=== PATIENT | female | born 1990 | race Caucasian/White ===

== ENCOUNTER 2017-11-03 13:03 | Inpatient (IN) | payer MEDICAID, OTHER ==
--- NOTE | 2017-11-03 14:23 | ED ---
Psych HPI - General Chief Complaint: Psychiatric Symptoms Stated Complaint: female , weakness Time Seen by Provider: 11/03/17 13:47 Source: patient, RN notes reviewed Mode of arrival: wheelchair Limitations: no limitations - History of Present Illness Initial Comments: 27-year-old female presents emergency Department with [facility] for psychiatric evaluation. Patient's been having bizarre behaviors. Patient states she's not suicidal or homicidal. She states that she used Adderall yesterday and some this morning. Patient is very fidgety. Patient has no physical complaints. Denies any alcohol abuse. She has a history of opiate abuse in the past states that she has not used recently. Patient's denies headache, dizziness, fever, chills. - Related Data Home Medications Medication Instructions Recorded Confirmed No Known Home Medications [No 11/03/17 11/03/17 Known Home Medications] Allergies Allergy/AdvReac Type Severity Reaction Status Date / Time No Known Allergies Allergy Verified 11/03/17 14:47 Review of Systems ROS Statement: Those systems with pertinent positive or pertinent negative responses have been documented in the HPI. ROS Other: All systems not noted in ROS Statement are negative. Past Medical History Past Medical History: Asthma History of Any Multi-Drug Resistant Organisms: MRSA Date of last positivie culture/infection: unsure not cultured MDRO Source:: right leg Past Surgical History: No Surgical Hx Reported Past Psychological History: Bipolar Smoking Status: Current every day smoker Past Alcohol Use History: None Reported Past Drug Use History: Cocaine, Heroin, Marijuana, Opiates, Prescription Drug Abuse General Exam Limitations: no limitations General appearance: alert, in no apparent distress, anxious Head exam: Present: atraumatic, normocephalic, normal inspection Eye exam: Present: normal appearance, PERRL, EOMI. Absent: scleral icterus, conjunctival injection, periorbital swelling ENT exam: Present: normal exam, normal oropharynx, mucous membranes moist Neck exam: Present: normal inspection. Absent: tenderness, meningismus, lymphadenopathy Respiratory exam: Present: normal lung sounds bilaterally. Absent: respiratory distress, wheezes, rales, rhonchi, stridor Cardiovascular Exam: Present: regular rate, normal rhythm, normal heart sounds. Absent: systolic murmur, diastolic murmur, rubs, gallop, clicks GI/Abdominal exam: Present: soft, normal bowel sounds. Absent: distended, tenderness, guarding, rebound, rigid Back exam: Absent: CVA tenderness (R), CVA tenderness (L) Neurological exam: Present: alert, oriented X3, CN II-XII intact Psychiatric exam: Present: anxious Skin exam: Present: warm, dry, intact, normal color. Absent: rash Course Vital Signs 11/03/17 13:31 Temperature 98 F Pulse Rate 99 Respiratory 18 Rate Blood Pressure 124/82 O2 Sat by Pulse 98 Oximetry Medical Decision Making - Lab Data Lab Results 11/03/17 11/03/17 Range/Units 15:40 15:40 Urine Color Yellow Urine Appearance Clear (Clear) Urine pH 6.0 (5.0-8.0) Ur Specific [place] 1.025 (1.001-1.035) Urine Protein 1+ H (Negative) Urine Glucose (UA) Negative (Negative) Urine Ketones Trace H (Negative) Urine Blood Trace H (Negative) Urine Nitrite Negative (Negative) Urine Bilirubin Negative (Negative) Urine Urobilinogen <2.0 (<2.0) mg/dL Ur Leukocyte Esterase Small H (Negative) Urine RBC 3 (0-5) /hpf Urine WBC 10 H (0-5) /hpf Ur Squamous Epith Cells 3 (0-4) /hpf Urine Bacteria Rare H (None) /hpf Hyaline Casts 2 (0-2) /lpf Urine Mucus Few H (None) /hpf Urine HCG, Qual Not Detected (Not Detectd) Urine Opiates Screen Not Detected (NotDetected) Ur Oxycodone Screen Not Detected (NotDetected) Urine Methadone Screen Not Detected (NotDetected) Ur Propoxyphene Screen Not Detected (NotDetected) Ur Barbiturates Screen Not Detected (NotDetected) U Tricyclic Antidepress Not Detected (NotDetected) Ur Phencyclidine Scrn Not Detected (NotDetected) Ur Amphetamines Screen Detected H (NotDetected) U Methamphetamines Scrn Detected H (NotDetected) U Benzodiazepines Scrn Detected H (NotDetected) Urine Cocaine Screen Detected H (NotDetected) U Marijuana (THC) Screen Not Detected (NotDetected) Disposition Clinical Impression: Polysubstance abuse, Psychosis, UTI (urinary tract infection) Disposition: ADMITTED IP TO THIS [facility] Condition: Fair Referrals: Rodríguez Winn DO [REFERRING] - 1-2 days
[2017-11-03 16:07] LABS: Appearance,Urine Clear (Clear); Bacteria,Urine Rare /hpf; Bilirubin,Urine Negative (Negative); Blood,Urine Trace (Negative); Color,Urine Yellow; Glucose,Urine (UA) Negative (Negative); Hyaline Casts,Urine 2 /lpf (0-2); Ketones,Urine Trace (Negative); Leukocyte Esterase,Urine Small (Negative); Mucus,Urine Few /hpf; Nitrite,Urine Negative (Negative); Protein,Urine 1+ (Negative); RBC,Urine 3 /hpf (0-5); Specific Gravity,Urine 1.025 (1.001-1.035); Squamous Epithelial Cell,Urine 3 /hpf (0-4); Urobilinogen,Urine <2.0 mg/dL (<2.0); WBC,Urine 10 /hpf (0-5)
[2017-11-03 16:12] LABS: Amphetamine Screen,Urine Detected (NotDetected); Barbiturate Screen,Urine Not Detected (NotDetected); Benzodiazepines Screen,Urine Detected (NotDetected); Cocaine Screen,Urine Detected (NotDetected); Methadone Screen, Urine Not Detected (NotDetected); Opiate Screen,Urine Not Detected (NotDetected); Oxycodone Screen, Urine Not Detected (NotDetected); Phencyclidine Screen,Urine Not Detected (NotDetected); Tricyclic Antidepressant,Urine Not Detected (NotDetected); Urn Cannabinoid Scrn Not Detected (NotDetected)
[2017-11-03] MEDS ORDERED: SULFAMETHOX-TMP 800-160MG 1 EACH TAB PO STA (16:15)
[2017-11-03] MEDS ORDERED: LORazepam 1 MG TAB PO STA (16:48)
[2017-11-03] MEDS ORDERED: MAGNESIUM HYDROXIDE 2,400 MG/10 ML CUP PO PRN (17:40)
[2017-11-03] MEDS ORDERED: ACETAMINOPHEN TAB 325 MG TAB PO PRN (17:40)
[2017-11-03] MEDS ORDERED: MAG HYDROX/AL HYDROX/SIMETH 30 ML CUP PO PRN (17:40)
[2017-11-03] MEDS ORDERED: HALOPERIDOL LACTATE 5 MG/ML 1 ML VIAL IM PRN (17:43)
[2017-11-03 18:45] VITALS: BMI 23.1
--- NOTE | 2017-11-03 19:23 | P.MDCNMH ---
History of Present Illness H&P Date: 11/03/17 Chief Complaint: medical management 27 year old female with history of asthma, medicine consulted for medical management patient is unable to tell me why she is here, nor she remembers how she got here , she mentioned that she was arrested and brought in here. she is fidgety with flight of thoughts, she kept moving around as if she is looking for something,and when asked she kept saying that she is looking for her ink pen. She reports some difficulty with urination without any fevers or chills, but could not remain attentive enough to go over details and started talking about other random things. when I managed to get her attention back to the subject, she could not give further details. she reports history of asthma, but have not been using inhalers for a month now , due to high cost, when I asked if she needed to use one, she just did not answer. Review of Systems unable to obtain meaningful review of systems at this point, due to patient poor attention span, and fidgety status. Past Medical History Past Medical History: Asthma History of Any Multi-Drug Resistant Organisms: None Reported, MRSA Date of last positivie culture/infection: unsure not cultured MDRO Source:: right leg Past Surgical History: Section Past Psychological History: Anxiety, Bipolar Smoking Status: Current every day smoker Past Alcohol Use History: None Reported Past Drug Use History: Cocaine, Heroin, Marijuana, Opiates, Prescription Drug Abuse - Past Family History family Additional Family Medical History / Comment(s): patient reports that her family is fine , She is not aware of any medical problems Medications and Allergies Home Medications Medication Instructions Recorded Confirmed Type No Known Home Medications [No 11/03/17 11/03/17 History Known Home Medications] Allergies Allergy/AdvReac Type Severity Reaction Status Date / Time No Known Allergies Allergy Verified 11/03/17 14:47 Physical Exam Vitals: Vital Signs Temp Pulse Pulse Resp BP BP Pulse Ox 11/03/17 18:18 97.6 F 104 H 18 94/72 11/03/17 13:31 98 F 99 18 124/82 98 Intake and Output 11/03/17 11/03/17 11/03/17 06:59 14:59 22:59 Other: Weight 60.373 kg 59.4 kg Constitutional: No acute distress, fidgety , restless, poor attention span Eyes: Anicteric sclerae, moist conjunctiva, no lid-lag Pupils equal round reactive to light ENMT: NC/AT Oropharynx clear, no erythema, or exudates Neck: Supple, FROM, no masses, or JVD No carotid bruits No thyromegaly Lungs: Clear to auscultation Clear to percussion Normal respiratory effort, no accessory muscle use Cardiovascular: Heart regular in rate and rhythm, No murmurs, gallops, or rubs No peripheral edema Abdominal: Soft Nontender, no guarding, rebound or rigidity Abdomen moving with respiration limited exam Skin: Normal temperature, tone, texture, turgor No induration No subcutaneous nodules No rash, lesions No ulcers Extremities: No digital cyanosis No clubbing Pedal pulses intact and symmetrical Radial pulses intact and symmetrical No calf tenderness Psychiatric: Alert and oriented to person, place inattentive, restless poor judgment Neuro Muscles Strength 5/5 in all 4 extremities , limited exam Lymphatics: no palpable cervical or supraclavicular , or inguinal lymph nodes Cranial Nerve Examination - Cranial Nerves Cranial Nerve II- Optic: Intact Cranial Nerve III- Oculomotor: Intact Cranial Nerve IV- Trochlear: Intact Cranial Nerve V- Trigeminal: Intact Cranial Nerve - Abducens: Intact Cranial Nerve VII- Facial: Intact Cranial Nerve VIII- Auditory: Intact Cranial Nerve IX- Glossopharyngeal: Intact Cranial Nerve X- Vagus: Intact Cranial Nerve XI- Accessory: Intact Cranial Nerve XII- Hypoglossal: Intact Results Labs: Abnormal Lab Results - Last 24 Hours (Table) 11/03/17 Range/Units 15:40 Urine Protein 1+ H (Negative) Urine Ketones Trace H (Negative) Urine Blood Trace H (Negative) Ur Leukocyte Esterase Small H (Negative) Urine WBC 10 H (0-5) /hpf Urine Bacteria Rare H (None) /hpf Urine Mucus Few H (None) /hpf Ur Amphetamines Screen Detected H (NotDetected) U Methamphetamines Scrn Detected H (NotDetected) U Benzodiazepines Scrn Detected H (NotDetected) Urine Cocaine Screen Detected H (NotDetected) Assessment and Plan Plan: 27-year-old female with intermittent asthma presented to the hospital for mental health evaluation, medicine was consulted for medical management. Patient complained of some difficulty of urination . patient was not very cooperative with this interview, due to poor attention span and restlessness #urinary urgency Rule out UTI Patient received a dose of Bactrim in the ER Check urinalysis and cultures Monitor for fevers Follow-up labs bactrim for 3 days # Astham intermittent PRN inhaler albuterol #Acute psychosis #Polysubstance abuse #Depression Management per psych Patient counseled regarding drug of abuse abstinence follow up labs Thank you for allowing us to participate in the care of this patient. We will follow peripherally. Do not hesitate to contact us with questions. Someone can be reached from the [facility] hospitalist group at all hours of the day at [phone].
[2017-11-03] MEDS ORDERED: ALBUTEROL INHALER 60 PUFF/8 GM INHALER INHALATION PRN (19:24)
[2017-11-03] MEDS: SULFAMETHOX-TMP 800-160MG 1 EACH TAB PO SCH (20:12)
--- NOTE | 2017-11-04 08:55 | P.HP ---
Psychiatric H&P - . H&P Date: 11/04/17 History & Physical: Allergies Allergy/AdvReac Type Severity Reaction Status Date / Time No Known Allergies Allergy Verified 11/03/17 14:47 Vital Signs Temp 97.6 F 11/03/17 18:18 Pulse 132 H 11/03/17 23:58 Resp 18 11/03/17 18:18 BP 133/88 11/03/17 23:58 Pulse Ox 98 11/03/17 13:31 Intake & Output 11/03/17 11/04/17 11/04/17 18:59 06:59 18:59 Weight 59.4 kg Laboratory Last Values Urine Color Yellow 11/03/17 15:40 Urine Appearance Clear (Clear) 11/03/17 15:40 Urine pH 6.0 (5.0-8.0) 11/03/17 15:40 Ur Specific [place] 1.025 (1.001-1.035) 11/03/17 15:40 Urine Protein 1+ (Negative) H 11/03/17 15:40 Urine Glucose (UA) Negative (Negative) 11/03/17 15:40 Urine Ketones Trace (Negative) H 11/03/17 15:40 Urine Blood Trace (Negative) H 11/03/17 15:40 Urine Nitrite Negative (Negative) 11/03/17 15:40 Urine Bilirubin Negative (Negative) 11/03/17 15:40 Urine Urobilinogen <2.0 mg/dL (<2.0) 11/03/17 15:40 Ur Leukocyte Esterase Small (Negative) H 11/03/17 15:40 Urine RBC 3 /hpf (0-5) 11/03/17 15:40 Urine WBC 10 /hpf (0-5) H 11/03/17 15:40 Ur Squamous Epith Cells 3 /hpf (0-4) 11/03/17 15:40 Urine Bacteria Rare /hpf (None) H 11/03/17 15:40 Hyaline Casts 2 /lpf (0-2) 11/03/17 15:40 Urine Mucus Few /hpf (None) H 11/03/17 15:40 Urine HCG, Qual Not Detected (Not Detectd) 11/03/17 15:40 Urine Opiates Screen Not Detected (NotDetected) 11/03/17 15:40 Ur Oxycodone Screen Not Detected (NotDetected) 11/03/17 15:40 Urine Methadone Screen Not Detected (NotDetected) 11/03/17 15:40 Ur Propoxyphene Screen Not Detected (NotDetected) 11/03/17 15:40 Ur Barbiturates Screen Not Detected (NotDetected) 11/03/17 15:40 U Tricyclic Antidepress Not Detected (NotDetected) 11/03/17 15:40 Ur Phencyclidine Scrn Not Detected (NotDetected) 11/03/17 15:40 Ur Amphetamines Screen Detected (NotDetected) H 11/03/17 15:40 U Methamphetamines Scrn Detected (NotDetected) H 11/03/17 15:40 U Benzodiazepines Scrn Detected (NotDetected) H 11/03/17 15:40 Urine Cocaine Screen Detected (NotDetected) H 11/03/17 15:40 U Marijuana (THC) Screen Not Detected (NotDetected) 11/03/17 15:40 11/04/17 08:37 Edification: Mabel Shepherd is a 27 years old single white female living in [facility]. She was admitted to [facility] on 2017 since she was too confused and agitated. History of present illness: Patient is not able to tell me the reasons for coming to hospital. Apparently she was brought here by the police since she was acting very confused. She was very confused in the ER and even when she was given a physical examination. She has not been able to provide good history. She also has been pretty agitated. Eventually she said she does not know why she is here. When she was asked if she has any psychiatric issues she said she has anxiety disorder since about age 11. She said it is constant and gets worse lasting for days. She is not able to give further details. She denies hallucinations, delusional thinking etc. But she agrees that she has been confused. She denies suicide and homicide thoughts. She had Haldol 5 mg by mouth once before 6 PM yesterday and another one just before midnight, she had Ativan 2 mg by mouth once before 5:00 in the evening yesterday. Previous psychiatric history/drug and alcohol abuse: She said she was never in a psychiatric hospital before. She said she has been taking Lexapro for more than one year. She is not able to tell me why she is taking Lexapro. She said she is also on Neurontin for anxiety PRESCRIBED by her family doctor. Her home medication list does not include any drugs at all. She denies abusing drugs and alcohol these days. But she said she had done Xanax his pain pills Adderall etc. in the past. Her drug screening is positive for amphetamines methamphetamines benzodiazepines and cocaine. Previous medical history: She is not ALLERGIC to any medication. She has bronchial asthma. Her menstrual periods are regular and she is having 1 now. She has 1 daughter who is 7 years old. She did not have any or surgery. Social history: Patient said she has part-time college education. She said she did not have any issues with discipline or learning problems when she was growing up. She said she had played volleyball when she was growing up. Further premorbid history is not available. She said she was raised well by her parents and was not abused. She does not have a job and she said other people help her out. She has Medicaid. She is Zoroastrian by buddhist and does not go to orthodox. She was not in the service. She denies pending legal problems. She is heterosexual and does not have a boyfriend now. Family history: She said her father has bipolar disorder. Mental status examination: This is a white ambulatory female with adequate hygiene. She is quite sleepy and is not able to provide good information. Her speech is unspontaneous, mumbled, short and often hard to understand. Questions had to be repeated a few times before she would answer questions. She changed her posture several times. But it does not seem to be part of agitation or hyperactivity and mostly from confusion. Her mood is dull and affect is rather constricted in range. She denies hallucinations, delusional thinking, suicidal and homicidal ideas. She is able to name this place. She said today is 5-18. She is able to recall 3 out of 3 items with clues after 5 minutes. She names the last 4 presidents as Trump Obama Sandhu and [place]. She is able to spell house both forwards and backwards correctly. She is able to say 8+7 is 15 and 87 is 56 without much difficulty. Her insight is poor and judgment is quite impaired as evidenced by her confusion and substance abuse. 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 Cocaine use disorder moderate F 14.20. 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 NKDA. Treatment plan: Patient already had physical examination and was started on Bactrim for possible UTI even though patient says she is having her menstrual period at this time and the report of urinalysis may may have been misinterpreted as UTI. She will have psychosocial evaluation. She will be closely observed for psychotic/confused behavior. Continue Haldol on a when necessary basis to manage altered mental status secondary to stimulants. Consider other medication if an independent psychiatric diagnosis other than substance use disorders can be made. Discharge with outpatient follow-up. Treatment goals: She will be free of confused thinking and behavior. She will be able to provide better information. She will learn better coping skills. Estimated length of stay: 2-4 days.
[2017-11-04] MEDS: SULFAMETHOX-TMP 800-160MG 1 EACH TAB PO SCH ×2 (08:59→20:51)
[2017-11-04] MEDS: NICOTINE 14MG/24HR PATCH TRANSDERM SCH (08:59)
[2017-11-04 11:58] LABS: Basophils % (A) 1 %; Eosinophils # (A) 0.3 k/uL (0-0.7); Eosinophils % (A) 6 %; HGB 12.9 gm/dL (11.4-16.0); Lymphocytes % (A) 21 %; MCH 29.7 pg (25.0-35.0); MCHC 32.2 g/dL (31.0-37.0); MCV 92.1 fL (80.0-100.0); Mean Platelet Volume 8.3; Monocytes # (A) 0.4 k/uL (0-1.0); Monocytes % (A) 8 %; Neutrophils % (A) 64 %; Platelet Count 234 k/uL (150-450); RBC 4.34 m/uL (3.80-5.40); RDW 13.2 % (11.5-15.5); WBC 4.6 k/uL (3.8-10.6)
[2017-11-04 12:08] LABS: ALT 27 U/L (9-52); AST 55 U/L (14-36); Albumin 4.3 g/dL (3.5-5.0); Alkaline Phosphatase 63 U/L (38-126); Anion Gap 13 mmol/L; Blood Urea Nitrogen 20 mg/dL (7-17); Calcium 9.2 mg/dL (8.4-10.2); Carbon Dioxide 25 mmol/L (22-30); Chloride 102 mmol/L (98-107); Glucose 71 mg/dL (74-99); Potassium 4.6 mmol/L (3.5-5.1); Sodium 140 mmol/L (137-145); Total Bilirubin 0.6 mg/dL (0.2-1.3); Total Protein 6.9 g/dL (6.3-8.2)
[2017-11-05] MEDS: NICOTINE 14MG/24HR PATCH TRANSDERM SCH (08:45)
[2017-11-05] MEDS: SULFAMETHOX-TMP 800-160MG 1 EACH TAB PO SCH ×2 (08:45→20:11)
--- NOTE | 2017-11-05 10:09 | P.PN ---
Progress Note - Text Progress Note Date: 11/05/17 Patient was seen for a follow-up examination. Today she is alert and is able to provide better information. 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 She said she had graduated from high school was outgoing until she reached puberty and then she started to stay by herself and does not socialize. She said she used to cut classes, hung around with friends, did things with them etc. She was in [facility] for retail fraud. She denies pending legal issues. She said she has been depressed since about age 11. She also said the depression is continuous, gets worse depending on the situation, feels tired and gets racing thoughts. She also reports of having anxiety since age 11 which is continuous and gets worse from time to time which happens spontaneously. When it gets worse she tends to stay in bed and gets nervous. She said she was on Lexapro and Neurontin in the past but it was discontinued after she went to come to group home. She asked if I can put her back on these medications. She was counseled. She also asked for her telephone so that she can get the numbers and make some phone calls. She usually does not socialize in the unit. She is not on any regular medication. This is a white ambulatory female with adequate hygiene. She is polite and cooperative. She does not show any psychomotor agitation or retardation. Her speech is spontaneous relevant and goal-directed. Her mood is euthymic and affect is appropriate. She denies hallucinations, delusional thinking, suicidal and homicide thoughts. She is well oriented with adequate memory concentration etc. Plan: Continue groups and other therapies, when necessary Haldol. reed worker will gather more information following which she is considered for discharge.
[2017-11-05] MEDS: HALOPERIDOL 5 MG TAB PO PRN ×2 (11:09→19:45)
[2017-11-06 06:36] VITALS: TEMP 98.2
--- NOTE | 2017-11-06 08:43 | P.DS ---
Providers Date of admission: 11/03/17 17:25 Expected date of discharge: 11/06/17 Attending physician: Sena Richardson Consults: 11/03/17 17:40 Consult Physician Routine Consulting Provider: Jose Louis Consult Reason/Comments: H&P for mental Health admission Do you want consulting provider notified?: Yes Primary care physician: [facility] Course: Patient had her psychiatric evaluation, physical examination and psychosocial evaluation. After psychiatric evaluation she was started on Haldol 5 mg 3 times a day on a when necessary basis. But she did not get it more than once a day. She gradually cleared up, her psychosis got cleared, she continued to be non-suicidal homicidal etc. She was able to contact her friends and felt she was ready to go home. In view of all these it was agreed to discharge her. Condition on discharge: This is a white ambulatory female with good hygiene. She does not show any psychomotor agitation or retardation. Her speech is spontaneous relevant and goal-directed. Her mood is euthymic to cheerful and affect is appropriate. She continues to deny suicide, homicide thoughts hallucinations and delusional thinking. She is well oriented with adequate memory concentration general knowledge etc. Her insight and judgment have improved. 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 Cocaine use disorder moderate F 14.20. 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 NKDA. Patient was advised and agreed to seek counseling/rehab regarding substance abuse, to learn better coping skills through therapy. Patient Condition at Discharge: Good Plan - Discharge Summary Discharge Rx Participant: No New Discharge Prescriptions: New Albuterol Inhaler [Ventolin Hfa Inhaler] 2 puff INHALATION RT-QID PRN puff PRN Reason: Shortness Of Breath Or Wheezing Discharge Medication List Albuterol Inhaler [Ventolin Hfa Inhaler] 2 puff INHALATION RT-QID PRN puff 04/16 [Rx] Follow up Appointment(s)/Referral(s): Rodríguez Winn DO [REFERRING] - 1-2 days Activity/Diet/Wound Care/Special Instructions: Activity and diet as tolerated. Avoid the use of street drugs and alcohol. Remove all firearms from the home. Take all medications as prescribed. Follow up with you Primary Care provider in 1-2 days. When you are in need of refills on your medications please contact your medical provider and/or outpatient psychiatrist to have this done. Please go to scheduled outpatient appointment for aftercare. If symptoms return or become worse call the crisis line at [phone] and/or go to the nearest emergency room for an evaluation.
[2017-11-06] MEDS ORDERED: LORazepam 2 MG/ML INJ ONE (08:58)
[2017-11-06] MEDS ORDERED: diphenhydrAMINE 50 MG/ML 1 ML VIAL IVP STA ×2 (09:02→09:08)
[2017-11-06] MEDS ORDERED: LORazepam 2 MG/ML INJ IM STA (09:06)
[2017-11-06] MEDS ORDERED: diphenhydrAMINE 50 MG/ML 1 ML VIAL IVP PRN (09:20)
[2017-11-06 09:34] LABS: Basophils % (A) 0 %; Eosinophils # (A) 0.3 k/uL (0-0.7); Eosinophils % (A) 4 %; Lymphocytes # (A) 3.3 k/uL (1.0-4.8); Lymphocytes % (A) 44 %; MCH 30.1 pg (25.0-35.0); MCHC 32.6 g/dL (31.0-37.0); MCV 92.4 fL (80.0-100.0); Mean Platelet Volume 8.6; Monocytes # (A) 0.4 k/uL (0-1.0); Monocytes % (A) 6 %; Neutrophils # (A) 3.3 k/uL (1.3-7.7); Neutrophils % (A) 43 %; Platelet Count 344 k/uL (150-450); RBC 4.33 m/uL (3.80-5.40); RDW 13.3 % (11.5-15.5); WBC 7.6 k/uL (3.8-10.6)
[2017-11-06 09:49] LABS: Calcium 9.6 mg/dL (8.4-10.2); Potassium 3.7 mmol/L (3.5-5.1)
--- NOTE | 2017-11-06 09:56 | P.EN ---
Patient apparently had a severe oculogyric crisis this morning, was seen by the medical doctor and other psychiatrist and I was not called for. Patient received Benadryl Ativan etc. and is currently sleeping. Her Haldol was discontinued. She has in order to continue Benadryl which was canceled by me and I started her on Cogentin 1 mg 3 times a day for 2 days.
[2017-11-06] MEDS: NICOTINE 14MG/24HR PATCH TRANSDERM SCH (10:00)
--- NOTE | 2017-11-06 11:29 | P.PN ---
Subjective Progress Note Date: 11/06/17 Notified by nursing staff that a rapid response was called. Because the patient was tachycardic, With noted neck stiffness. On arrival patient was diaphoretic, tachycardic. Blood pressure was normal and the patient was complaining of inability to move her neck and head. Review of the medications indicated the patient had been on Haldol Objective - Vital Signs Vital signs: Vital Signs Temp 98.2 F 11/06/17 06:24 Pulse 104 H 11/06/17 09:15 Resp 20 11/06/17 09:15 BP 112/79 11/06/17 09:15 Pulse Ox 98 11/03/17 13:31 - Exam Constitutional: Moderate distress, anxious and diaphoretic Eyes: Anicteric sclerae, moist conjunctiva, no lid-lag, PERRLA ENMT: NC/AT,Oropharynx clear, no erythema, exudates Neck:Supple, neck hyperextended drifting towards the left Lungs: Clear to auscultation, Clear to percussion, Normal respiratory effort, no accessory muscle use Cardiovascular: Tachycardic regular rhythm No murmurs, gallops, or rubs no peripheral edema Abdominal: Soft Nontender, nom distended, no guarding, no rebound or rigidity, Normoactive bowel sounds No hepatomegaly, No splenomegaly, No palpable mass No abdominal wall hernia noted Skin: Normal temperature, tone, texture, turgor, No induration No subcutaneous nodules, No rash, lesions, No ulcers Extremities:No digital cyanosis No clubbing, Pedal pulses intact and symmetrical Radial pulses intact and symmetrical Normal gait and station, No calf tenderness Psychiatric: Alert and oriented to person, place and time, Appropriate affect Intact judgement Neuro: Muscles Strength 5/5 in all 4 extremities, Sensation to light touch grossly present throughout, Cranial nerves II-XII grossly intact. No focal sensory deficits - Labs CBC & Chem 7: 11/06/17 09:07 11/06/17 09:07 Labs: Abnormal Lab Results - Last 24 Hours (Table) 11/06/17 Range/Units 09:07 Carbon Dioxide 19 L (22-30) mmol/L Glucose 196 H (74-99) mg/dL Microbiology - Last 24 Hours (Table) 11/04/17 19:05 Urine Culture - Final Urine,Clean Catch Assessment and Plan (1) Dystonic drug reaction Narrative/Plan: * Patient was having extrapyramidal reaction to Haldol along with acute dystonic reaction * Patient was given Benadryl and Ativan which promptly relieved her symptoms subsequently started on Cogentin * Will observe the patient for another 24 hours and if there are no other acute events she can be discharged Current Visit: Yes Status: Acute Code(s): G24.02 - DRUG INDUCED ACUTE DYSTONIA SNOMED Code(s): 763764190 (2) Methamphetamine dependence, continuous Current Visit: Yes Status: Acute Code(s): F15.20 - OTHER STIMULANT DEPENDENCE, UNCOMPLICATED SNOMED Code(s): 818482499 Plan: We'll monitor the patient for the next 24 hours after the patient had an acute dystonic reaction to Haldol
[2017-11-06] MEDS: BENZTROPINE MESYLATE 1 MG TAB PO SCH ×3 (11:38→21:37)
[2017-11-06] MEDS ORDERED: diphenhydrAMINE 50 MG CAP PO SCH (13:00)
[2017-11-07 06:46] VITALS: BP 113/69; PULSE 88; RESP 12
[2017-11-07] MEDS: BENZTROPINE MESYLATE 1 MG TAB PO SCH (08:43)
[2017-11-07] MEDS: NICOTINE 14MG/24HR PATCH TRANSDERM SCH (08:43)
--- NOTE | 2017-11-07 10:03 | P.DS ---
Providers Date of admission: 11/03/17 17:25 Expected date of discharge: 11/07/17 Attending physician: Sena Richardson Consults: 11/03/17 17:40 Consult Physician Routine Consulting Provider: [facility] Reason/Comments: H&P for mental Health admission Do you want consulting provider notified?: Yes Primary care physician: [facility] Course: Patient had her psychiatric evaluation, physical examination and psychosocial evaluation. After psychiatric evaluation she was started on Haldol 5 mg 3 times a day on a when necessary basis. Her confusion and psychosis gradually cleared up and she was scheduled to go home yesterday however she developed acute dystonic reaction including oculogyric crisis, was attended by another psychiatrist and an priming mixture carrier instead of me the attending for reasons not clear , was started on IV line, given Ativan and Benadryl IV. The dystonic reaction subsided and patient fell asleep most of the day yesterday. I changed her Benadryl to Cogentin 1 mg 3 times a day. She is quite alert and cooperative today and feels she is ready to go home. Condition on discharge: This is a white ambulatory female with good hygiene. She does not show any psychomotor agitation or retardation. Her speech is spontaneous relevant and goal-directed. Her mood is euthymic to cheerful and affect is appropriate. She continues to deny suicide and homicide thoughts. She denies hallucinations and delusional thinking. She is well oriented with good memory concentration general fund of knowledge etc. Her insight and judgment have improved. 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 Cocaine use disorder moderate F 14.20. 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 Dystonic reaction and oculogyric crisis from Haldol. Patient was advised and agreed to take Cogentin 1 mg 3 times a day for mother 3 days, to seek drug counseling/rehab, learn better coping skills through therapy. Patient Condition at Discharge: Good Plan - Discharge Summary Discharge Rx Participant: No New Discharge Prescriptions: New Albuterol Inhaler [Ventolin Hfa Inhaler] 2 puff INHALATION RT-QID PRN puff PRN Reason: Shortness Of Breath Or Wheezing Benztropine Mesylate [Cogentin] 1 mg PO TID 3 Days #10 tab Discharge Medication List Albuterol Inhaler [Ventolin Hfa Inhaler] 2 puff INHALATION RT-QID PRN puff 04/16 [Rx] Benztropine Mesylate [Cogentin] 1 mg PO TID 3 Days #10 tab 11/07/17 [Rx] Follow up Appointment(s)/Referral(s): Rodríguez Winn DO [REFERRING] - 1-2 days Activity/Diet/Wound Care/Special Instructions: Activity and diet as tolerated. Avoid the use of street drugs and alcohol. Remove all firearms from the home. Take all medications as prescribed. Follow up with you Primary Care provider in 1-2 days. When you are in need of refills on your medications please contact your medical provider and/or outpatient psychiatrist to have this done. Please go to scheduled outpatient appointment for aftercare. If symptoms return or become worse call the crisis line at [phone] and/or go to the nearest emergency room for an evaluation.
== END 2017-11-07 14:58 | disposition home or self-care (01) | DRG 897 ==
LOC: EC 13:03 → 3MHU 17:25
PROVIDERS: ADMIT Psychiatry & Neurology Psychiatry; ATTEND Psychiatry & Neurology Psychiatry
DX: F15.121 Other stimulant abuse with intoxication delirium (principal); F14.20 Cocaine dependence, uncomplicated; G24.09 Other drug induced dystonia; N39.0 Urinary tract infection, site not specified; F13.10 Sedative, hypnotic or anxiolytic abuse, uncomplicated; F17.200 Nicotine dependence, unspecified, uncomplicated; F41.9 Anxiety disorder, unspecified; J45.909 Unspecified asthma, uncomplicated; Z79.899 Other long term (current) drug therapy; Z81.8 Family history of other mental and behavioral disorders
CPT/HCPCS: 80048; 80053; 80306; 81001; 81025; 82075; 84443; 85025; 87086; 99285